=== PATIENT | male | born 1995 | race Caucasian/White ===

== ENCOUNTER 2020-07-06 04:04 | Emergency (ER) | payer OTHER ==
[~2020-07-06] VITALS: Ht 172.7 cm; Wt 104.3 kg
[2020-07-06 04:08] VITALS: Ht 172.7 cm; Wt 104.3 kg
[2020-07-06 04:18] VITALS: BP 127/82
== END 2020-07-06 04:18 | disposition home or self-care (01) ==
LOC: ED 04:04
DX: L60.0 Ingrowing nail (principal); E03.9 Hypothyroidism, unspecified

== ENCOUNTER 2020-08-03 00:12 | Emergency (ER) | payer OTHER ==
[~2020-08-03] VITALS: Ht 172.7 cm; Wt 113.4 kg
[2020-08-03 00:22] VITALS: BP 144/58; Ht 172.7 cm; Wt 113.4 kg
== END 2020-08-03 00:43 | disposition home or self-care (01) ==
LOC: ED 00:12
DX: Z11.3 Encounter for screening for infections with a predominantly sexual mode of transmission (principal); E03.9 Hypothyroidism, unspecified
CPT/HCPCS: 87491; 87591

== ENCOUNTER 2020-10-12 18:50 | Emergency (ER) | payer OTHER, SELFPAY ==
[~2020-10-12] VITALS: Ht 172.7 cm; Wt 113.4 kg
[2020-10-12 18:52] VITALS: BP 124/70; Ht 172.7 cm; Wt 113.4 kg
== END 2020-10-12 19:58 | disposition home or self-care (01) ==
LOC: ED 18:50
DX: U07.1 COVID-19 (principal); E03.9 Hypothyroidism, unspecified
CPT/HCPCS: U0003